=== PATIENT | male | born 1990 | race Caucasian/White ===

== ENCOUNTER 2016-11-22 17:58 | Emergency (ER) | payer BC ==
[~2016-11-22] VITALS: Ht 177.8 cm; Wt 77.3 kg
[~2016-11-22 17:58] MED LIST: LORTAB 5/500 501 TAB PO; NO HOME MEDICATIONS; NORCO 325 MG-51 TAB PO; TUMS500 MG PO; TYLENOL PO
[2016-11-22 18:01] VITALS: BP 133/75; TEMP 97.7
[2016-11-22] MEDS ORDERED: WELLBUTRIN 75MG75 MG PO (18:07)
[2016-11-22] MEDS ORDERED: METAMUCIL FIBE1 EACH PO (18:08)
[2016-11-22] MEDS ORDERED: PEPCID 20MG TAB20 MG PO (18:08)
[2016-11-22] MEDS ORDERED: IMODIUM A-D2 MG PO (18:08)
[2016-11-22] MEDS ORDERED: NORCO 325 MG-7.1 TAB PO (19:23)
[2016-11-22] MEDS ORDERED: CLEOCIN HCL300 MG PO (19:24)
[2016-11-22 19:48] VITALS: PULSE 71
== END 2016-11-22 19:40 | disposition home or self-care (01) ==
LOC: COL.ER 17:58
DX: S62.174A Nondisplaced fracture of trapezium [larger multangular], right wrist, initial encounter for closed fracture (principal); S02.5XXA Fracture of tooth (traumatic), initial encounter for closed fracture; S50.812A Abrasion of left forearm, initial encounter; S00.531A Contusion of lip, initial encounter; V19.88XA Pedal cyclist (driver) (passenger) injured in other specified transport accidents, initial encounter; Y93.55 Activity, bike riding; Y92.414 Local residential or business street as the place of occurrence of the external cause